=== PATIENT | male | born 1995 | race Caucasian/White ===

== ENCOUNTER 2017-07-16 16:16 | Emergency (ER) | payer BC, OTHER ==
[~2017-07-16] VITALS: Ht 177.8 cm; Wt 75.8 kg
--- NOTE | 2017-07-16 16:48 | ER Report ---
History and Physical Time Seen By MD: 16:47 Hx. of Stated Complaint: N/V SINCE NOON. LOWER BACK PAIN THATS MOVING UP HIS BACK HPI/ROS CHIEF COMPLAINT: Flank pain HISTORY OF PRESENT ILLNESS: This is a 22-year-old male who presents to the emergency department with left flank pain and nausea and vomiting. States that he woke up this morning with lower back pain bilaterally, a little more in the left than the right. Denies trauma or testicular pain. Patient states that the pain has increased over the course today he's had nausea and vomiting throughout the day as well denies diarrhea. Patient denies aches, chills, diarrhea, fevers, recent colds, chest pain or shortness of breath. REVIEW OF SYSTEMS: Constitutional: No fever, no chills. Eyes: No discharge. ENT: No sore throat. Cardiovascular: No chest pain, no palpitations. Respiratory: No cough, no shortness of breath. Gastrointestinal: As above. Genitourinary: No hematuria. Musculoskeletal: As above. Skin: No rashes. Neurological: No headache. 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 Reviewed Nurses Notes: Yes Hx Smoking: No Hx Substance Use Disorder: No Hx Alcohol Use: Yes Constitutional Vital Sign - Last 24 Hours 07/16/17 07/16/17 07/16/17 07/16/17 16:41 16:42 16:46 17:00 Temp 98.2 Pulse 78 80 Resp 16 B/P (MAP) 141/87 (105) 141/87 130/80 (97) Pulse Ox 98 99 O2 Delivery Room Air 07/16/17 07/16/17 07/16/17 07/16/17 17:01 17:16 17:30 17:31 Pulse 83 81 65 B/P (MAP) 124/66 (85) Pulse Ox 98 84 100 07/16/17 07/16/17 07/16/17 07/16/17 17:34 17:36 17:51 18:00 Pulse 70 72 B/P (MAP) ???/??? (1665) Pulse Ox 100 100 O2 Flow Rate 2.0 07/16/17 07/16/17 07/16/17 07/16/17 18:06 18:16 18:21 18:30 Pulse ??? 89 B/P (MAP) 126/80 (95) 113/76 (88) Pulse Ox 100 07/16/17 07/16/17 07/16/17 07/16/17 18:36 18:51 18:56 19:00 Pulse 88 84 89 B/P (MAP) 116/80 (92) Pulse Ox 100 99 100 07/16/17 07/16/17 07/16/17 07/16/17 19:11 19:15 19:26 19:30 Pulse 91 79 B/P (MAP) 124/71 (88) 122/71 (88) Pulse Ox 99 98 07/16/17 07/16/17 07/16/17 19:41 19:56 20:00 Pulse 80 72 B/P (MAP) 115/53 (73) Pulse Ox 97 98 Intake and Output 07/16/17 07/16/17 07/17/17 15:00 23:00 07:00 Intake Total 1000 ml Balance 1000 ml Physical Exam General Appearance: The patient is alert, has no immediate need for airway protection and no signs of toxicity, pale and uncomfortable. Eyes: Pupils equal and round no pallor or injection. ENT, Mouth: Mucous membranes are moist. Respiratory: There are no retractions, lungs are clear to auscultation. Cardiovascular: Regular rate and rhythm, no murmurs, clicks or rubs. Gastrointestinal: Abdomen is soft with diffuse abdominal pain with palpation, no masses, bowel sounds normal. Neurological: Alert and oriented 4. Moving all extremities. Following all commands. No focal neuro deficits. Skin: Warm and dry, no rashes. Musculoskeletal: Neck is supple non tender. Left sided CVA tenderness. Extremities are nontender, nonswollen and have full range of motion. DIFFERENTIAL DIAGNOSIS: After history and physical exam differential diagnosis was considered for abdominal pain including but not limited to appendicitis, cholecystitis, gastritis and urinary tract infection, flank pain including but not limited to musculoskeletal causes, kidney stone, pyelonephritis, shingles, and intra-abdominal causes such as diverticulitis and appendicitis. Medical Decision Making Data Points Result Diagram: 07/16/17 1704 07/16/17 1704 Laboratory Hematology Test 07/16/17 17:04 07/16/17 19:14 Red Blood Count 6.11 M/uL (4.00-5.60) Mean Corpuscular Volume 86.6 fL (80.0-96.0) Mean Corpuscular Hemoglobin 29.8 pg (26.0-33.0) Mean Corpuscular Hemoglobin Concent 34.4 g/dL (32.0-36.0) Red Cell Distribution Width 12.3 % (11.5-14.5) Mean Platelet Volume 8.6 fL (7.2-11.1) Neutrophils (%) (Auto) 88.7 % (39.4-72.5) Lymphocytes (%) (Auto) 3.7 % (17.6-49.6) Monocytes (%) (Auto) 6.5 % (4.1-12.4) Eosinophils (%) (Auto) 0.7 % (0.4-6.7) Basophils (%) (Auto) 0.4 % (0.3-1.4) Nucleated RBC Relative Count (auto) 0.1 /100WBC Neutrophils # (Auto) 11.7 K/uL (2.0-7.4) Lymphocytes # (Auto) 0.5 K/uL (1.3-3.6) Monocytes # (Auto) 0.9 K/uL (0.3-1.0) Eosinophils # (Auto) 0.1 K/uL (0.0-0.5) Basophils # (Auto) 0.1 K/uL (0.0-0.1) Nucleated RBC Absolute Count (auto) 0.01 K/uL Sodium Level 137 mmol/L (137-145) Potassium Level 3.6 mmol/L (3.5-5.0) Chloride Level 100 mmol/L (98-107) Carbon Dioxide Level 22 mmol/L (22-30) Blood Urea Nitrogen 22 mg/dl (9-21) Creatinine 1.10 mg/dl (0.66-1.25) Glomerular Filtration Rate Calc > 60.0 Random Glucose 98 mg/dl (75-110) Calcium Level 9.6 mg/dl (8.4-10.2) Total Bilirubin 1.3 mg/dl (0.2-1.3) Aspartate Amino Transf (AST/SGOT) 21 U/L (0-35) Alanine Aminotransferase (ALT/SGPT) 27 U/L (0-56) Alkaline Phosphatase 104 U/L (0-126) Total Protein 8.5 gm/dl (6.3-8.2) Albumin 4.8 g/dl (3.5-5.0) Lipase 143 U/L (23-300) Urine Color Yellow Urine Clarity Clear Urine pH 5.0 pH (4.8-9.5) Urine Specific Aiken 1.026 Urine Protein Negative mg/dL (NEGATIVE) Urine Glucose (UA) Negative mg/dL (NEGATIVE) Urine Ketones Trace mg/dL (NEGATIVE) Urine Blood Negative (NEGATIVE) Urine Nitrite Negative (NEGATIVE) Urine Bilirubin Negative (NEGATIVE) Urine Urobilinogen Negative mg/dL (0.2-1.9) Urine Leukocyte Esterase Negative (NEGATIVE) Urine RBC <1 /HPF (0-2/HPF) Urine WBC 2 /HPF (0-5/HPF) Urine Squamous Epithelial Cells Few /LPF (</=FEW) Urine Bacteria Negative /HPF (NONE-FEW) Urine Mucus Few /HPF (NONE-FEW) Chemistry Test 07/16/17 17:04 07/16/17 19:14 White Blood Count 13.2 k/uL (4.5-11.0) Red Blood Count 6.11 M/uL (4.00-5.60) Hemoglobin 18.2 g/dL (14.0-18.0) Hematocrit 52.9 % (42.0-52.0) Mean Corpuscular Volume 86.6 fL (80.0-96.0) Mean Corpuscular Hemoglobin 29.8 pg (26.0-33.0) Mean Corpuscular Hemoglobin Concent 34.4 g/dL (32.0-36.0) Red Cell Distribution Width 12.3 % (11.5-14.5) Platelet Count 226 K/uL (150-450) Mean Platelet Volume 8.6 fL (7.2-11.1) Neutrophils (%) (Auto) 88.7 % (39.4-72.5) Lymphocytes (%) (Auto) 3.7 % (17.6-49.6) Monocytes (%) (Auto) 6.5 % (4.1-12.4) Eosinophils (%) (Auto) 0.7 % (0.4-6.7) Basophils (%) (Auto) 0.4 % (0.3-1.4) Nucleated RBC Relative Count (auto) 0.1 /100WBC Neutrophils # (Auto) 11.7 K/uL (2.0-7.4) Lymphocytes # (Auto) 0.5 K/uL (1.3-3.6) Monocytes # (Auto) 0.9 K/uL (0.3-1.0) Eosinophils # (Auto) 0.1 K/uL (0.0-0.5) Basophils # (Auto) 0.1 K/uL (0.0-0.1) Nucleated RBC Absolute Count (auto) 0.01 K/uL Glomerular Filtration Rate Calc > 60.0 Calcium Level 9.6 mg/dl (8.4-10.2) Total Bilirubin 1.3 mg/dl (0.2-1.3) Aspartate Amino Transf (AST/SGOT) 21 U/L (0-35) Alanine Aminotransferase (ALT/SGPT) 27 U/L (0-56) Alkaline Phosphatase 104 U/L (0-126) Total Protein 8.5 gm/dl (6.3-8.2) Albumin 4.8 g/dl (3.5-5.0) Lipase 143 U/L (23-300) Urine Color Yellow Urine Clarity Clear Urine pH 5.0 pH (4.8-9.5) Urine Specific Aiken 1.026 Urine Protein Negative mg/dL (NEGATIVE) Urine Glucose (UA) Negative mg/dL (NEGATIVE) Urine Ketones Trace mg/dL (NEGATIVE) Urine Blood Negative (NEGATIVE) Urine Nitrite Negative (NEGATIVE) Urine Bilirubin Negative (NEGATIVE) Urine Urobilinogen Negative mg/dL (0.2-1.9) Urine Leukocyte Esterase Negative (NEGATIVE) Urine RBC <1 /HPF (0-2/HPF) Urine WBC 2 /HPF (0-5/HPF) Urine Squamous Epithelial Cells Few /LPF (</=FEW) Urine Bacteria Negative /HPF (NONE-FEW) Urine Mucus Few /HPF (NONE-FEW) Urinalysis Test 07/16/17 19:14 Urine Color Yellow Urine Clarity Clear Urine pH 5.0 pH (4.8-9.5) Urine Specific Aiken 1.026 Urine Protein Negative mg/dL (NEGATIVE) Urine Glucose (UA) Negative mg/dL (NEGATIVE) Urine Ketones Trace mg/dL (NEGATIVE) Urine Blood Negative (NEGATIVE) Urine Nitrite Negative (NEGATIVE) Urine Bilirubin Negative (NEGATIVE) Urine Urobilinogen Negative mg/dL (0.2-1.9) Urine Leukocyte Esterase Negative (NEGATIVE) Urine RBC <1 /HPF (0-2/HPF) Urine WBC 2 /HPF (0-5/HPF) Urine Squamous Epithelial Cells Few /LPF (</=FEW) Urine Bacteria Negative /HPF (NONE-FEW) Urine Mucus Few /HPF (NONE-FEW) EKG/Imaging Imaging PATIENT NAME: Adilson Juan : 1995 MR: [id number] V: [id number] EXAM DATE: ORDERING PHYSICIAN: LOUIE OCAMPO TECHNOLOGIST: [place] [facility] [place] Adilson Juan : 1995 Visit/Account:[id number] Date of Sevice: 07/16/2017 EXAMINATION: CT ABDOMEN AND PELVIS WITHOUT CONTRAST COMPARISON: None. HISTORY: Abdomen and back pain today. Vomiting. PROCEDURE: Multiplanar noncontrast CT of the abdomen and pelvis. One of the following dose optimization techniques was utilized in the performance of this exam: Automated exposure control; adjustment of the mA and/or kV according to the patient's size; or use of an iterative reconstruction technique. Specific details can be referenced in the facility's radiology CT exam operational policy. FINDINGS: Evaluation of the solid and viscus parenchymal organs and vascular structures is limited without the benefit of IV contrast. Visualized thorax: Negative. Liver: Noncontrast imaging of the visualized liver is within normal limits. Gallbladder and biliary system: Negative Spleen: Spleen size is normal. Pancreas: Questionable mild peripancreatic inflammation along the pancreatic head and uncinate. No peripancreatic fluid collection. Adrenal glands: Negative. Kidneys and bladder: Mild asymmetric atrophy of the left kidney with scattered cortical infarcts. No radiopaque urolithiasis or evidence of an obstructive uropathy. A left pelvic calcification is favored to be a phlebolith, less likely a nonobstructing distal ureteral stone. Urinary bladder is unremarkable. Vessels: Within normal limits. Bowel and mesentery: Stomach is within normal limits. Prominent fluid-filled mid small bowel loops measuring up to 2.8 cm and containing a few nonspecific air-fluid levels. There is a focal transition point in the left lateral abdomen (series 2 image 118). Although the small bowel immediately distal to the transition point is completely decompressed, the distal ileum does contain a small amount of fluid. Appendix is unremarkable. Small amount stool in the colon. No bowel or mesenteric inflammation. Pelvic organs: Negative. Lymph nodes: No adenopathy. Free air/free fluid: None. Abdominal wall and osseous structures: Negative. IMPRESSION: 1. Questionable mild peripancreatic inflammation along the pancreatic head and uncinate. Correlation with any evidence of pancreatitis is recommended. 2. Prominent fluid-filled loops of noninflamed small bowel which as further described above demonstrate a potential transition point in the left lateral abdomen. Depending upon the clinical setting this could be due to a gastroenteritis, small bowel ileus, or potentially a developing mid small bowel obstruction. 3. No radiopaque urolithiasis or evidence of an obstructive uropathy. Results were discussed with LOUIE OCAMPO at 07/16/2017 6:31 PM. Report Dictated By: Kuldeep Carrera MD at 07/16/2017 6:23 PM Report E-Signed By: Kuldeep Carrera MD at 07/16/2017 6:34 PM WSN:[id number] ED Course/Re-evaluation Clinical Indication for ER IV: Hydration, IV Access ED Course The patient was admitted to a room. A history physical were obtained. Differential diagnoses were considered. IV was started. A CBC, CMP, lipase and UA were obtained. Mildly elevated white count 13.2, with a left shift, chemistry showing BUN at 22 otherwise unremarkable. UA showing trace ketones consistent with mild dehydration. A CT of the abdomen and pelvis was obtained. Negative for a kidney stone however there was some questionable pancreatic inflammation. There is also some question as to whether or not the patient had a possible small bowel obstruction developing, ileus or just a gastroenteritis. Patient has been having bowel movements. Patient did state that he had been exposed to a friend who had similar symptoms but they also had diarrhea. I will treat him as gastroenteritis, with follow up with Dr. Fernandez as noted below. The patient was given 1 L of normal saline, 4 mg IV Zofran 2, 4 mg IV morphine. I did discuss the findings with the patient and the patient felt that he would be okay to go home and follow-up with Dr. Fernandez tomorrow. Patient had no other questions or concerns at this time and was discharged home. Patient was also sent home with a prescription for Zofran and hydrocodone. The patient's was also instructed to return to the emergency department he has any other concerns or worsening symptoms. 07/16/2017 7:20:21 pm I did speak with Dr. Fernandez regarding the patient's case and the CT results. He felt that the patient would be okay to go home at this time and follow-up in his office tomorrow for reevaluation. Decision to Disposition Date: Jul 16, 2017 Decision to Disposition Time: 19:41 Depart Departure Latest Vital Signs Vital Signs Date Time Temp Pulse Resp B/P (MAP) Pulse Ox O2 Delivery O2 Flow Rate FiO2 07/16/17 20:00 115/53 (73) 07/16/17 19:56 72 98 07/16/17 17:34 2.0 07/16/17 16:42 98.2 16 Room Air Impression: Primary Impression: Gastroenteritis Condition: Improved Disposition: HOME OR SELF-CARE Referrals: OLEG FERNANDEZ MD New Scripts Ondansetron (ZOFRAN ODT) 4 Mg Tab.rapdis 4 MG PO Q6H Y for NAUSEA/VOMITING, #20 TAB.SOPHIA Prov: LOUIE OCAMPO [employer] [employer] 07/16/17 Hydrocodone Bit/Acetaminophen (HYDROCODON-ACETAMINOPHEN 5-325) 1 Each Tablet 1 EACH PO Q4-6H Y for PAIN, #10 TAB Prov: LOUIE OCAMPOP-BC 07/16/17 Patient Instructions: Gastroenteritis (ED) Additional Instructions: Drink plenty of fluids. Clear liquid diet for the next 12-24 hours. Get plenty of rest. Take the medications as prescribed. No driving or operating machinery while taking narcotics. Call Dr. Nachtigal's office tomorrow for a follow-up evaluation on the questionable pancreatitis and questionable bowel obstruction. Return to the emergency department for any other concerns or worsening symptoms. LOUIE OCAMPO-BC Jul 16, 2017 16:48
[2017-07-16] MEDS ORDERED: NS(*) 0.9% 1000 ML BAG 1,000 ML IV ONE (16:56)
[2017-07-16] MEDS ORDERED: KETOROLAC 15 MG/ML VIAL IVP ONE (17:00)
[2017-07-16] MEDS ORDERED: ONDANSETRON 4 MG/2 ML VIAL IVP ONE ×2 (17:00→19:35)
[2017-07-16 17:11] LABS: PLATELET COUNT, AUTOMATED 226 K/uL (150-450)
--- NOTE | 2017-07-16 18:37 | RADIOLOGY IMAGING REPORT ---
FACILITY: [facility] PATIENT NAME: Adilson Juan : 1995 MR: [id number] V: [id number] EXAM DATE: ORDERING PHYSICIAN: LOUIE OCAMPO TECHNOLOGIST: Location: [facility] Patient: Adilson Juan : 1995 Visit/Account:[id number] Date of Sevice: 07/16/2017 EXAMINATION: CT ABDOMEN AND PELVIS WITHOUT CONTRAST COMPARISON: None. HISTORY: Abdomen and back pain today. Vomiting. PROCEDURE: Multiplanar noncontrast CT of the abdomen and pelvis. One of the following dose optimizati on techniques was utilized in the performance of this exam: Automated exposure control; adjustment of the mA and/or kV according to the patient's size; or use of an iterative reconstruction technique. Specific details can be referenced in the facility's radiology CT exam operational policy. FINDINGS: Evaluation of the solid and viscus parenchymal organs and vascular structures is limited wi thout the benefit of IV contrast. Visualized thorax: Negative. Liver: Noncontrast imaging of the visualized liver is within normal limits. Gallbladder and biliary system: Negative Spleen: Spleen size is normal. Pancreas: Questionable mild peripancreatic inflammation along the pancreatic head and uncinate. No pe ripancreatic fluid collection. Adrenal glands: Negative. Kidneys and bladder: Mild asymmetric atrophy of the left kidney with scattered cortical infarcts. No radiopaque urolithiasis or evidence of an obstructive uropathy. A left pelvic calcification is favore d to be a phlebolith, less likely a nonobstructing distal ureteral stone. Urinary bladder is unremark able. Vessels: Within normal limits. Bowel and mesentery: Stomach is within normal limits. Prominent fluid-filled mid small bowel loops me asuring up to 2.8 cm and containing a few nonspecific air-fluid levels. There is a focal transition p oint in the left lateral abdomen (series 2 image 118). Although the small bowel immediately distal to the transition point is completely decompressed, the distal ileum does contain a small amount of flu id. Appendix is unremarkable. Small amount stool in the colon. No bowel or mesenteric inflammation. Pelvic organs: Negative. Lymph nodes: No adenopathy. Free air/free fluid: None. Abdominal wall and osseous structures: Negative. IMPRESSION: 1. Questionable mild peripancreatic inflammation along the pancreatic head and uncinate. Correlation with any evidence of pancreatitis is recommended. 2. Prominent fluid-filled loops of noninflamed small bowel which as further described above demonstra te a potential transition point in the left lateral abdomen. Depending upon the clinical setting this could be due to a gastroenteritis, small bowel ileus, or potentially a developing mid small bowel ob struction. 3. No radiopaque urolithiasis or evidence of an obstructive uropathy. Results were discussed with LOUIE OCAMPO at 07/16/2017 6:31 PM. Report Dictated By: Kuldeep Carrera MD at 07/16/2017 6:23 PM Report E-Signed By: Kuldeep Carrera MD at 07/16/2017 6:34 PM WSN:[id number]
[2017-07-16] MEDS ORDERED: MORPHINE 4 MG/ML SYR IVP ONE (19:15)
[2017-07-16] MEDS ORDERED: HYDR-385 PO (19:38)
[2017-07-16] MEDS ORDERED: ONDA4TAB PO (19:38)
[2017-07-16 20:00] VITALS: BP 115/53
== END 2017-07-16 20:20 | disposition home or self-care (01) ==
LOC: CANBEDREQ 16:29 → ER 16:54
DX: K52.9 Noninfective gastroenteritis and colitis, unspecified (principal)
CPT/HCPCS: 74176; 81001; 83690; 85025; 96361; 96374; 96375; 96376; 99284; J1885; J2270; J2405; J7030; 82040; 82247; 82310; 82374; 82435; 82565; 82947; 84075; 84132; 84155; 84295; 84450; 84460; 84520